=== PATIENT | female | born 1985 | race Caucasian/White ===

== ENCOUNTER 2016-10-03 19:21 | Emergency (ER) | payer MEDICAID ==
[2016-10-03 19:31] VITALS: O2SAT 100
[2016-10-03 20:20] LABS: RBC URINE 6 /hpf (0-3); URINE BACTERIA RARE (<OCC); URINE BILIRUBIN NEGATIVE (NEGATIVE); URINE BLOOD NEGATIVE (NEGATIVE); URINE COLOR Yellow (YELLOW); URINE GLUCOSE (UA) NORMAL (Normal); URINE KETONE NEGATIVE (NEGATIVE); URINE LEUKOCYTE ESTERASE 3+ Leu/uL (Negative); URINE PROTEIN NEGATIVE (NEGATIVE); URINE UROBILINOGEN NORMAL mg/dL (0.2-1.0); WBC URINE 31 /hpf (0-5)
[2016-10-03 21:05] LABS: CHLORIDE 99 mmol/L (98-107); POTASSIUM 3.9 mmol/L (3.6-5.2); SODIUM 135 mmol/L (132-148)
[2016-10-03 21:07] LABS: ALB/GLOB RATIO 1.1 (1.0-2.1); ALKALINE PHOSPHATASE 95 U/L (38-126); AST/SGOT 21 U/L (14-36); BILIRUBIN,TOTAL 0.6 mg/dL (0.2-1.3); CARBON DIOXIDE 24 mmol/L (22-30); GFR AFRICAN-AMERICAN > 60; TOTAL PROTEIN 8.8 g/dL (6.3-8.3)
[2016-10-03 21:08] LABS: ALT/SGPT 23 U/L (9-52); BASO # 0.2 K/uL (0.0-0.2); BASO % 1.3 % (0.0-2.0); BLOOD UREA NITROGEN 11 mg/dL (7-17); CALCIUM 9.1 mg/dl (8.6-10.4); EOS # 0.5 K/uL (0.0-0.7); EOS % 4.5 % (0.0-4.0); GLUCOSE,RANDOM 85 mg/dL (65-105); HEMATOCRIT 37.2 % (34.0-47.0); LYMPH # 3.2 K/uL (1.0-4.3); LYMPH % 27.7 % (20.0-40.0); MEAN CELL VOLUME 77.4 fL (81.0-99.0); MEAN CORPUSCULAR HEMOGLOBIN 25.1 pg (27.0-31.0); MEAN CORPUSCULAR HGB CONC 32.4 g/dL (33.0-37.0); MEAN PLATELET VOLUME 9.1 fL (7.2-11.7); MONO # 0.7 K/uL (0.0-0.8); MONO % 6.1 % (0.0-10.0); RED CELL DISTRIBUTION WIDTH 14.9 % (11.5-14.5); WHITE BLOOD COUNT 11.7 K/uL (4.8-10.8)
--- NOTE | 2016-10-03 21:24 | C.PDOC ---
History Of Present Illness 31 year old female presents to the ED with complaints of "burning" epigastric pain that began at 4pm today. Patient seen at [facility] on 11/25/2015 for similar symptoms and was diagnosed with an UTI, given pepsin and ciprofloxacin. Patient denies nausea, vomiting, diarrhea, hematuria, dysuria, vaginal bleeding/discharge. Time Seen by Provider: 10/03/16 19:44 Chief Complaint (Nursing): Abdominal Pain History Per: Patient History/Exam Limitations: no limitations Onset/Duration Of Symptoms: Days Current Symptoms Are (Timing): Still Present Severity: Mild Location Of Pain/Discomfort: Epigastric Quality Of Discomfort: Burning Associated Symptoms: denies: Fever, Chills, Nausea, Vomiting, Diarrhea Abnormal Vaginal Bleeding: No Past Medical History Reviewed: Historical Data, Nursing Documentation, Vital Signs Vital Signs: Last Vital Signs Temp 98.2 F 10/03/16 21:57 Pulse 72 10/03/16 21:57 Resp 18 10/03/16 21:57 BP 116/79 10/03/16 21:57 Pulse Ox 100 10/03/16 22:09 - Medical History PMH: No Chronic Diseases Family History: States: No Known Family Hx - Social History Hx Tobacco Use: No Hx Alcohol Use: No Hx Substance Use: No - Immunization History Hx Tetanus Toxoid Vaccination: No Hx Influenza Vaccination: No Hx Pneumococcal Vaccination: No Review Of Systems Except As Marked, All Systems Reviewed And Found Negative. Constitutional: Negative for: Fever, Chills Cardiovascular: Negative for: Chest Pain, Palpitations Respiratory: Negative for: Cough, Shortness of Breath Gastrointestinal: Positive for: Abdominal Pain (epigastric ). Negative for: Nausea, Vomiting, Diarrhea Genitourinary: Negative for: Dysuria, Hematuria, Vaginal Discharge, Vaginal Bleeding Skin: Negative for: Rash Physical Exam - Physical Exam Appears: Well, Non-toxic, No Acute Distress Skin: Warm, Dry Eye(s): bilateral: Normal Inspection Oral Mucosa: Moist Neck: Supple Cardiovascular: Rhythm Regular Respiratory: Normal Breath Sounds, No Rales, No Rhonchi, No Wheezing Gastrointestinal/Abdominal: Bowel Sounds, Soft, Tenderness (mild epigastric tenderness), No Distention, No Guarding, No Rebound, Other ((-) Narvaez's, (-) McBurney's ) Back: No CVA Tenderness Neurological/Psych: Oriented x3 ED Course And Treatment - Laboratory Results Result Diagrams: 10/03/16 20:53 10/03/16 20:53 O2 Sat by Pulse Oximetry: 100 (room air ) Pulse Ox Interpretation: Normal Progress Note: Patient given PO pepcid, and UA, Upreg ordered. On reassessment , she reports no improvement in her symptoms. Blood work ordered and patient given IV NS bolus, IV protonix. Reevaluation Time: 21:50 Reassessment Condition: Improved (Patient reassessed, is currently resting comfortably and states she feels better. On exam, abdomen is soft and nontender. Blood worl unremarkable, and patient without urinary symptoms. Rx given for protonix, and she was instructed to follow up with gastroenterology within 1 week. She understands she should return to ED if symptoms worsen.) Disposition Counseled Patient/Family Regarding: Studies Performed, Diagnosis, Need For Followup, Rx Given - Disposition Referrals: Pratima Lizama MD [Staff Provider] - Mae Clark [Staff Provider] - Disposition: HOME/ ROUTINE Disposition Time: 21:50 Condition: STABLE Additional Instructions: FOLLOW UP WITH YOUR DOCTOR IN 1-2 DAYS, AND WITH NUMERICAL CONTROL PROGRAMMER WITHIN 1 WEEK USE MEDICATION EVERY DAY AVOID SPICY OR ACIDIC FOODS RETURN TO EMERGENCY ROOM IF SYMPTOMS WORSEN Prescriptions: Pantoprazole [Protonix EC Tab] 20 mg PO DAILY #30 ect Instructions: Epigastric Pain (ED) Print Language: SWAZI - POA Present On Arrival: None - Clinical Impression Clinical Impression: Epigastric abdominal pain, Dyspepsia - Scribe Statement The provider has reviewed the documentation as recorded by the Chandrikaibquirino Hoskins All medical record entries made by the Floresita were at my direction and personally dictated by me. I have reviewed the chart and agree that the record accurately reflects my personal performance of the history, physical exam, medical decision making, and the department course for this patient. I have also personally directed, reviewed, and agree with the discharge instructions and disposition.
[2016-10-03 21:59] VITALS: BP 116/79; PULSE 72; RESP 18; TEMP 98.2
== END 2016-10-03 21:55 | disposition home or self-care (01) ==
LOC: C.ER 19:21
DX: R10.13 Epigastric pain (principal)
CPT/HCPCS: 80053; 81001; 83690; 84703; 85025; 96374; 99284; C9113

== ENCOUNTER 2016-10-21 09:30 | Emergency (ER) | payer MEDICAID ==
[2016-10-21 09:43] VITALS: BP 124/90; PULSE 78; RESP 20; TEMP 97.9; O2SAT 100; BMI 30.4
--- NOTE | 2016-10-21 10:14 | C.PDOC ---
History Of Present Illness 31 y/o female with history or seasonal summer allergies complains of nasal congestion, "too much" with associated throat scratchiness x1 week. Denies fever , chills, SOB, chest pain or any other complaints. No medications taken for symptoms. Time Seen by Provider: 10/21/16 09:43 Chief Complaint (Nursing): ENT Problem History Per: Patient History/Exam Limitations: None Onset/Duration Of Symptoms: Days Current Symptoms Are (Timing): Still Present Symptoms Have Been: Continuous Severity: Mild Anticoagulant/Antiplatlet Use?: No Past Medical History Reviewed: Historical Data, Nursing Documentation, Vital Signs Vital Signs: Last Vital Signs Temp 97.9 F 10/21/16 09:40 Pulse 78 10/21/16 09:40 Resp 20 10/21/16 09:40 BP 124/90 10/21/16 09:40 Pulse Ox 100 10/21/16 10:15 Family History: States: Unknown Family Hx - Social History Hx Tobacco Use: No Hx Alcohol Use: No Hx Substance Use: No - Immunization History Hx Tetanus Toxoid Vaccination: No Hx Influenza Vaccination: No Hx Pneumococcal Vaccination: No Review Of Systems Except As Marked, All Systems Reviewed And Found Negative. Constitutional: Negative for: Fever, Chills ENT: Positive for: Nose Congestion, Throat Pain (scratchiness) Cardiovascular: Negative for: Chest Pain Respiratory: Negative for: Shortness of Breath Gastrointestinal: Negative for: Nausea, Vomiting Physical Exam - Physical Exam Appears: Non-toxic, No Acute Distress Skin: Warm, Dry, No Rash Head: Atraumatic, Normacephalic Ear(s): Bilateral: Normal, Other (TMs normal) Nose: Other (boggy nares) Oral Mucosa: Moist Throat: Erythema (mild), No Exudate Neck: Normal, Normal ROM, Supple Chest: Symmetrical Cardiovascular: Rhythm Regular, No Murmur Respiratory: Normal Breath Sounds, No Accessory Muscle Use, No Rales, No Rhonchi , No Wheezing Gastrointestinal/Abdominal: Soft, No Tenderness Extremity: Bilateral: Atraumatic Neurological/Psych: Oriented x3, Normal Speech ED Course And Treatment O2 Sat by Pulse Oximetry: 100 (room air) Pulse Ox Interpretation: Normal Medical Decision Making Medical Decision Making: Claritin. Discharged home with instructions for allergy maintenance. Disposition - Disposition Referrals: [facility] [Outside] Disposition: HOME/ ROUTINE Disposition Time: 10:12 Condition: STABLE Prescriptions: Fexofenadine/Pseudoephedrine [Crissy-D 24 Hour Tablet] 1 each PO DAILY #20 tab.er.24h Instructions: Antihistamine (By mouth) Forms: General Discharge Instructions - POA Present On Arrival: None - Clinical Impression Clinical Impression: Seasonal allergic rhinitis - Scribe Statement The provider has reviewed the documentation as recorded by the Floresita Carbone Provider Attestation: All medical record entries made by the Floresita were at my direction and personally dictated by me. I have reviewed the chart and agree that the record accurately reflects my personal performance of the history, physical exam, medical decision making, and the department course for this patient. I have also personally directed, reviewed, and agree with the discharge instructions and disposition.
== END 2016-10-21 10:25 | disposition home or self-care (01) ==
LOC: C.ER 09:30
DX: J30.2 Other seasonal allergic rhinitis (principal)

== ENCOUNTER 2017-03-16 14:53 | Emergency (ER) | payer MEDICAID ==
[2017-03-16 15:01] VITALS: BMI 30.7
[2017-03-16 15:06] VITALS: RESP 18
--- NOTE | 2017-03-16 15:54 | RAD ---
PROCEDURE: Right Foot Radiographs. HISTORY: post injury , LMP Jan COMPARISON: None. FINDINGS: BONES: No fracture is identified and there is no destructive bone lesion appreciated. JOINTS: A valgus deformities appreciate the interphalangeal joint of the great toe with the joints of the forefoot midfoot and hindfoot otherwise intact. Limited degenerative changes seen at the tibiotalar joint best appreciated in the oblique view SOFT TISSUES: Normal. OTHER FINDINGS: None. 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 No acute fracture dislocation. Limited degenerative changes are seen at the tibiotalar joint.
--- NOTE | 2017-03-16 16:01 | C.PDOC ---
History Of Present Illness 32yo female presents for evaluation of right foot pain, present since yesterday. States she was in the shower and injured her foot, now has swelling to dorsum of her foot. She offers no other medical complaints. Time Seen by Provider: 03/16/17 15:23 Chief Complaint (Nursing): Lower Extremity Problem/Injury History Per: Patient History/Exam Limitations: no limitations Onset/Duration Of Symptoms: Days (1) Current Symptoms Are (Timing): Still Present Recent travel outside of the [place]: No Additional History Per: Patient Past Medical History Reviewed: Historical Data, Nursing Documentation, Vital Signs Vital Signs: Last Vital Signs Temp 98.1 F 03/16/17 16:10 Pulse 62 03/16/17 16:10 Resp 18 03/16/17 16:10 BP 107/69 03/16/17 16:10 Pulse Ox 98 03/16/17 16:54 - Medical History PMH: No Chronic Diseases Surgical History: No Surg Hx Family History: States: No Known Family Hx, Unknown Family Hx - Social History Hx Tobacco Use: No Hx Alcohol Use: No Hx Substance Use: No - Immunization History Hx Tetanus Toxoid Vaccination: No Hx Influenza Vaccination: No Hx Pneumococcal Vaccination: No Review Of Systems Musculoskeletal: Positive for: Foot Pain (right foot) Neurological: Negative for: Weakness, Numbness Physical Exam - Physical Exam Appears: Non-toxic, No Acute Distress Extremity: Normal ROM (full ROM at right knee, ankle and toes), Capillary Refill (< 2 seconds; sensations and motor strength intact), Swelling (swelling, ecchymosis and tenderness noted to dorsum of right foot, over 4th and 5th metatarsals.) Pulses: Right Dorsalis Pedis: Normal ED Course And Treatment O2 Sat by Pulse Oximetry: 98 (RA) Pulse Ox Interpretation: Normal - Other Rad right foot X-Ray: Read By Radiologist Interpretation: IMPRESSION: 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 No acute fracture dislocation. Limited degenerative changes are seen at the tibiotalar joint. Medical Decision Making Medical Decision Making: no fx on foot xray, will wrap foot with dwight bandage, and give ortho shoe, tylenol and podiatry f/u Disposition - Disposition Referrals: Podiatry Clinic [Outside] Disposition: HOME/ ROUTINE Disposition Time: 15:59 Condition: STABLE Additional Instructions: Dwight bandage on foot to help with swelling- take off at night. Keep foot elevated when possible. Wear orthpedic shoe for comfort. Take Tylenol as directed. Follow up with podiatry clinic if pain persists after a week. - call for an appointment. Prescriptions: Acetaminophen [Tylenol 325mg tab] 650 mg PO Q6 #30 tab Instructions: Foot Contusion (ED) Forms: [facility] (Barbadian), General Discharge Instructions - Clinical Impression Clinical Impression: Contusion of right foot - Scribe Statement The provider has reviewed the documentation as recorded by the Floresita Denis Provider Attestation All medical record entries made by the Floresita were at my direction and personally dictated by me. I have reviewed the chart and agree that the record accurately reflects my personal performance of the history, physical exam, medical decision making, and the department course for this patient. I have also personally directed, reviewed, and agree with the discharge instructions and disposition.
[2017-03-16 16:10] VITALS: BP 107/69; PULSE 62; TEMP 98.1
[2017-03-16 16:42] VITALS: O2SAT 98
== END 2017-03-16 16:14 | disposition home or self-care (01) ==
LOC: C.ER 14:53 → SUPCPDRO 14:53 → C.ER 16:14
DX: S90.31XA Contusion of right foot, initial encounter (principal); X58.XXXA Exposure to other specified factors, initial encounter; Y93.E1 Activity, personal bathing and showering; Y92.002 Bathroom of unspecified non-institutional (private) residence as the place of occurrence of the external cause

== ENCOUNTER 2017-08-09 08:59 | Emergency (ER) | payer MEDICAID ==
[2017-08-09 09:04] VITALS: TEMP 98
--- NOTE | 2017-08-09 09:25 | C.PDOC ---
History Of Present Illness 32-year-old female, (, LMP: one month ago), presents to the emergency department with complaints of vaginal bleeding, associated with suprapubic cramping since this morning. Patient denies nausea/vomiting, back pain, dysuria. Time Seen by Provider: 08/09/17 09:16 Chief Complaint (Nursing): Female Genitourinary History Per: Patient History/Exam Limitations: no limitations Past Medical History Reviewed: Historical Data, Nursing Documentation, Vital Signs Vital Signs: Last Vital Signs Temp 98 F 08/09/17 11:35 Pulse 68 08/09/17 11:35 Resp 18 08/09/17 11:35 BP 126/86 08/09/17 11:35 Pulse Ox 98 08/09/17 11:35 Family History: States: No Known Family Hx - Social History Hx Tobacco Use: No Hx Alcohol Use: No Hx Substance Use: No - Immunization History Hx Tetanus Toxoid Vaccination: No Hx Influenza Vaccination: No Hx Pneumococcal Vaccination: No Review Of Systems Except As Marked, All Systems Reviewed And Found Negative. Constitutional: Negative for: Fever Respiratory: Negative for: Shortness of Breath Gastrointestinal: Negative for: Vomiting Genitourinary: Positive for: Vaginal Bleeding. Negative for: Dysuria, Hematuria Musculoskeletal: Negative for: Back Pain Skin: Negative for: Rash Physical Exam - Physical Exam Appears: Well, Non-toxic, No Acute Distress Skin: Normal Color, Warm, Dry, No Rash Eye(s): bilateral: PERRL Nose: Normal Lips: Normal Appearing Neck: Normal ROM Cardiovascular: Rhythm Regular, No Murmur Respiratory: Normal Breath Sounds, No Accessory Muscle Use Gastrointestinal/Abdominal: Soft, Tenderness (suprapubic, mild), No Guarding, No Rebound Extremity: Normal ROM, No Deformity, No Swelling Neurological/Psych: Oriented x3, Normal Speech ED Course And Treatment - Laboratory Results Result Diagrams: 08/09/17 09:48 08/09/17 09:48 O2 Sat by Pulse Oximetry: 100 (RA) Pulse Ox Interpretation: Normal Progress Note: Bloodwork, Ultrasound and UA ordered and reviewed Reevaluation Time: 13:28 Reassessment Condition: Improved (APPEARS COMFORTABLE NAD VSS. FU OBGYN) Disposition Counseled Patient/Family Regarding: Studies Performed, Diagnosis, Need For Followup - Disposition Referrals: [facility] [Outside] [facility] [Outside] Disposition: HOME/ ROUTINE Disposition Time: 13:28 Condition: GOOD Additional Instructions: THERE IS NO EVIDENCE OF DURING THIS ER EVALUATION. RETURN IN 2-3 DAYS FOR REPEAT BLOOD TEST. FOLLOW UP WITH YOUR OBGYN Instructions: Threatened Miscarriage Forms: [facility] (Tuvaluan) - Clinical Impression Clinical Impression: Threatened miscarriage - Scribe Statement The provider has reviewed the documentation as recorded by the Scribe (Eunice Henley) All medical record entries made by the Scribe were at my direction and personally dictated by me. I have reviewed the chart and agree that the record accurately reflects my personal performance of the history, physical exam, medical decision making, and the department course for this patient. I have also personally directed, reviewed, and agree with the discharge instructions and disposition.
[2017-08-09 10:02] LABS: BASO # 0.1 K/uL (0.0-0.2); BASO % 1.2 % (0.0-2.0); EOS # 0.8 K/uL (0.0-0.7); EOS % 9.1 % (0.0-4.0); LYMPH # 2.4 K/uL (1.0-4.3); LYMPH % 26.6 % (20.0-40.0); MEAN CORPUSCULAR HEMOGLOBIN 24.3 pg (27.0-31.0); MEAN CORPUSCULAR HGB CONC 32.2 g/dL (33.0-37.0); MEAN PLATELET VOLUME 8.7 fL (7.2-11.7); MONO # 0.6 K/uL (0.0-0.8); MONO % 6.3 % (0.0-10.0); NEUT # 5.1 K/uL (1.8-7.0); NEUT % 56.8 % (50.0-75.0); RBC 4.55 Mil/uL (3.80-5.20); RED CELL DISTRIBUTION WIDTH 15.5 % (11.5-14.5)
[2017-08-09 10:04] LABS: MEAN CELL VOLUME 75.2 fL (81.0-99.0)
[2017-08-09 10:12] LABS: ALB/GLOB RATIO 1.1 (1.0-2.1); ALBUMIN 4.2 g/dL (3.5-5.0); ALT/SGPT 22 U/L (9-52); AST/SGOT 29 U/L (14-36); BLOOD UREA NITROGEN 12 mg/dL (7-17); CALCIUM 8.7 mg/dl (8.6-10.4); GFR AFRICAN-AMERICAN > 60; GFR NON-AFRICAN AMERICAN > 60
[2017-08-09 10:16] LABS: SQUAMOUS EPITHIAL 8 /hpf (0-5); URINE BILIRUBIN NEGATIVE (NEGATIVE); URINE BLOOD 3+ (NEGATIVE); URINE CLARITY Hazy (Clear); URINE COLOR Yellow (YELLOW); URINE GLUCOSE (UA) NORMAL (Normal); URINE LEUKOCYTE ESTERASE NEG Leu/uL (Negative); URINE PROTEIN 1+ mg/dL (NEGATIVE); URINE UROBILINOGEN NORMAL mg/dL (0.2-1.0)
[2017-08-09 11:36] VITALS: BP 126/86
--- NOTE | 2017-08-09 13:26 | US ---
HISTORY: VB COMPARISON: None available. TECHNIQUE: Transabdominal and transvaginal FINDINGS: UTERUS: Measures 8.5 x 4.5 x 4.6 cm. Normal in size and appearance. No fibroid or other mass lesion seen. ENDOMETRIUM: Measures 6 mm in diameter. Unremarkable. CERVIX: No cervical abnormality identified. RIGHT OVARY: Measures 3.0 x 2.4 x 2.6 cm. No solid mass. Normal flow. Simple cyst, 1.9 x 2.3 x 1.9 cm. LEFT OVARY: Measures 2.8 x 1.5 x 2.2 cm. No solid mass. Normal flow. FREE FLUID: No significant free fluid noted. OTHER FINDINGS: None. IMPRESSION: 2.3 cm simple right ovarian cyst, presumed physiologic. Otherwise unremarkable examination.
[2017-08-09 13:34] VITALS: PULSE 78; RESP 16; O2SAT 98
== END 2017-08-09 13:48 | disposition home or self-care (01) ==
LOC: C.ER 08:59
DX: O20.0 Threatened abortion (principal)